=== PATIENT | male | born 1955 | race Caucasian/White ===

== ENCOUNTER 2018-04-15 17:06 | Emergency (ER) | payer OTHER ==
[~2018-04-15] VITALS: Ht 172.7 cm; Wt 91.2 kg
--- NOTE | 2018-04-15 17:11 | NUR ---
PATIENT BIBA TO BED 1 AT THIS TIME.
[2018-04-15 17:16] VITALS: BP 155/92
--- NOTE | 2018-04-15 17:20 | NUR ---
PT BIB EMS FROM [facility]. PER RESIDENTIAL MONITOR, PATIENT WAS FOUND ON THE BATHROOM FLOOR AROUND 1500. PATIENT STATES HE FELL AND HIT HIS HEAD. PATIENT REPORTS OF 8/10 BACK PAIN. NO EXTERNAL INJURIES NOTED. PATIENT IS AWAKE AND ALERT. NO S/S OF DISTRESS NOTED AT THIS TIME. BED LOWERED WITH SIDE RAILS UP. PATIENT WITH BRANCH LEAD AT BEDSIDE
--- NOTE | 2018-04-15 19:10 | NUR ---
RECIEVED REPORT FROM [facility] ON . PT VSS.
[2018-04-15] MEDS ORDERED: KETOROLAC 60 MG/2 ML VIAL IM ONE (19:30)
[2018-04-15] MEDS ORDERED: MORPHINE SULFATE 4 MG/ML SYR IM ONE (21:15)
--- NOTE | 2018-04-15 21:39 | NUR ---
Patient discharged with v/s stable. Written and verbal after care instructions given and explained. Patient alert, oriented and verbalized understanding of instructions. Ambulatory with steady gait. All questions addressed prior to discharge. ID band removed. Patient advised to follow up with PMD. Rx of NAPROSYN WAS given. Patient educated on indication of medication including possible reaction and side effects. Opportunity to ask questions provided and answered.
--- NOTE | 2018-04-15 21:40 | NUR ---
PT IS WAITNG FOR TRANSPORT. ETA IS 1 HOUR. 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 VSS
--- NOTE | 2018-04-15 22:37 | NUR ---
transport at bedside, transporting pt back to [facility].
[2018-04-15] MEDS ORDERED: cloNIDine 0.1 MG TAB PO ONE (22:50)
--- NOTE | 2018-04-15 22:50 | NUR ---
GAVE REPORT TO ELÍAS CAMPO. ELÍAS REQUESTED BP MEDICATION FOR THE PT , BP WAS 176/90. ER MD MADE AWARE AND TO ORDER MED.
--- NOTE | 2018-04-15 22:57 | NUR ---
PT VSS PT IS BEING TRANSPORTED BACK TO [facility] AND IS STABLE FOR TRANSPORT. GAVE UPDATE TO ELÍAS AT [facility].
--- NOTE | 2018-04-15 22:57 | NUR ---
PT TAKEN BY [facility] TRANSPORT TO [facility]
[2018-04-15 23:01] VITALS: BP 176/90
== END 2018-04-15 22:57 | disposition home or self-care (01) ==
LOC: MED 17:06
DX: S33.5XXA Sprain of ligaments of lumbar spine, initial encounter (principal); S00.03XA Contusion of scalp, initial encounter; M54.2 Cervicalgia; R55 Syncope and collapse; I10 Essential (primary) hypertension; Z88.0 Allergy status to penicillin; Z88.2 Allergy status to sulfonamides; Z90.49 Acquired absence of other specified parts of digestive tract; W19.XXXA Unspecified fall, initial encounter; Y93.89 Activity, other specified; Y92.89 Other specified places as the place of occurrence of the external cause; Y99.8 Other external cause status
CPT/HCPCS: 70450; 96372; 99285; J1885; J2270